=== PATIENT | female | born 1965 | race Caucasian/White ===

== ENCOUNTER → 2020-01-20 09:27 | Outpatient (BNVA) | payer OTHER, SELFPAY | PROVIDERS: PCP Family Medicine; Referring Provider Family Medicine; Visit Provider Surgery | DX: Z76.89 Persons encountering health services in other specified circumstances (principal) ==

== ENCOUNTER 2020-02-03 10:04 | Outpatient (REF) | payer OTHER, SELFPAY ==
--- NOTE | 2020-02-03 10:09 | FL_ITS ---
EXAMINATION: FL BARIUM SWALLOW CLINICAL INFORMATION: Status post hernia repair. COMPARISON: 12/06/2019 TECHNIQUE: Barium swallow examination is performed using fluoroscopic evaluation in addition to multiple fluoroscopic spot views. The patient is imaged both upright and prone and using both thick and thin sulfate along with effervescent granules. DAP: 117 Gycm2. Images: 26. FINDINGS: No evidence of aspiration. Normal esophageal motility and distention. Normal passage of the barium through the esophagus to the stomach. No mass or mucosal lesion is seen. No evidence of hiatal hernia. No reflux is seen in the supine position. Patient swallowed a barium tablet, with transient delay of passage at the distal esophagus, which resolved with additional swallows of water. FL/FL barium swallow IMPRESSION: No significant abnormality demonstrated by barium study.
[2020-02-03] MEDS: Diatrizoate Meglumine, Sodium 30 ML SOLUTION PO (11:12)
== END 2020-02-03 10:05 | disposition home or self-care (01) ==
LOC: HO.XRAY 10:04
PROVIDERS: Visit Provider Surgery
DX: K44.0 Diaphragmatic hernia with obstruction, without gangrene (principal)
CPT/HCPCS: 74220

== ENCOUNTER → 2021-01-28 15:07 | Outpatient (BNVA) | payer OTHER, SELFPAY | PROVIDERS: PCP Family Medicine; Visit Provider Internal Medicine ==